=== PATIENT | female | born 1980 | race Caucasian/White ===

== ENCOUNTER 2016-08-16 14:43 | Emergency (ER) | payer OTHER ==
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
[2016-08-16 17:05] VITALS: BP 164/74
== END 2016-08-16 17:09 | disposition home or self-care (01) ==
LOC: UCCORT 14:43
DX: R10.12 Left upper quadrant pain (principal); M54.5 Low back pain; M25.552 Pain in left hip; Z88.0 Allergy status to penicillin; F17.210 Nicotine dependence, cigarettes, uncomplicated
CPT/HCPCS: 81003; 99212; G0463

== ENCOUNTER 2019-03-12 08:38 | Emergency (ER) | payer OTHER ==
--- OUTSIDE RECORDS SUMMARY | 2019-03-12 08:44 | XMS REPORT | Continuity of Care Document ---
:1980 External Reference #:[id number] Author Name Jackelyn Meade MD Address [address] [place] [address] Care Team Providers Name Role Phone Rohan Mariee MD - Gastroenterology Care Team Information Aircraft Maintenance Technician [facility] Care Team Information Aircraft Maintenance Technician [phone] [facility] - Surgery Care Team Information Aircraft Maintenance Technician Thais Sandy MD - Rheumatology Care Team Information Aircraft Maintenance Technician Problems Active Problems Provider Date Family history of endocrine disorders Jackelyn Meade MD Onset: 01/18/2013 Migraine with typical aura Jackelyn Meade MD Onset: 07/14/2012 Family history of diabetes mellitus Jackelyn Meade MD Onset: 01/05/2012 Tobacco user Jackelyn Meade MD Onset: 01/01/2011 Vitamin D deficiency Jackelyn Meade MD Onset: 06/26/2010 Obesity Jackelyn Meade MD Onset: 06/22/2006 Gynecologic examination Jackelyn Meade MD Onset: 10/27/2004 Mixed hyperlipidemia Jackelyn Meade MD Onset: 10/27/2004 Polycystic ovaries Jackelyn Meade MD Onset: 10/27/2004 Fibromyalgia Jackelyn Meade MD Onset: 01/22/2015 Body mass index 30+ - obesity Jackelyn Meade MD Onset: 01/22/2015 Benign neoplasm of colon Jackelyn Meade MD Onset: 01/22/2015 Morbid obesity Jackelyn Meade MD Onset: 02/04/2018 Rosacea Jackelyn Meade MD Onset: 02/04/2018 Hormone replacement therapy Jackelyn Meade MD Onset: 03/02/2019 Social History Type Date Description Comments Sex Unknown ETOH Use Rarely consumes alcohol Tobacco Use Start: Unknown Patient is a current smoker, smokes every day Recreational Drug Use Denies Drug Use Smoking Status Reviewed: 03/02/19 Patient is a current smoker, smokes every day Exercise Type/Frequency Exercises regularly Walks 3 x/week, emilio roa, 01/11/2014 counselled 150min per week 10k steps per day Allergies, Adverse Reactions, Alerts Active Allergies Reaction Severity Comments Date Penicillin 12/05/2014 Inactive Allergies NKDA 12/05/2014 Medications Active Medications SIG Qnty Indications Ordering Date Provider Nicotine Polacrilex chew until 110units F17.210 Halina, 03/02/2019 tingles, when MD Jackelyn 2mg Gum craving met stop; use when has cravings Vitamin D take 2 by mouth 180tabs E55.9 Halina, 02/04/2018 1000Unit daily with dinner MD Jackelyn Tablets with meat fat oil Premarin 1 by mouth every Z79.890 Majo Rashid 01/17/2014 0.3mg day Kim Tablets Immunizations CPT Code Status Date Vaccine Reaction Lot # [id number] Given 12/20/2018 Influenza Vac, Quadrivalent, Split, 0.5mL Dosage, Im Use 21750 Given 02/04/2018 Pneumococcal 23 Immunization [id number] Adult Or Immunosuppressed Patient 65340 Given 01/13/2018 Influenza Vaccine Quadrivalent Preser/Antibiotic Free Im Use [id number] Given 01/18/2017 Flu Vaccine NOS Given At Pharmacy 12758 Given 02/03/2016 Influenza Virus Vaccine,Quadrivalent,Split,Prese rv Free, 0.5mL,[place] [address] Given 01/16/2015 Influenza Virus Vaccine,Quadrivalent,Split,Prese rv Free, 0.5mL,[place] [address] Given 01/18/2013 Afluria Or Fluvirin Flu Vac Intramuscular 34285 Given 10/25/2012 Tdap (Adacel) Ages 7 And Above Only 39246 Given 01/05/2012 Afluria Or Fluvirin Flu Vac Intramuscular 54807 Given 06/06/2009 Hepatitis B Vac Adolescent 2 Dose Schedule 50188 Given 03/05/2009 Afluria Or Fluvirin Flu Vac Intramuscular 27658 Given 01/10/2009 Hepatitis B Vac Adolescent 2 Dose Schedule 40965 Given 12/13/2008 Hepatitis B Vac Adolescent 2 Dose Schedule 86071 Given 08/28/2005 Tetanus And Diptheria Toxoid 7 Years And Older Preserv Free Vital Signs Date Vital Result Comment 03/02/2019 2:48pm Weight 237.00 lb Heart Rate 88 /min BP Systolic 132 mmHg BP Diastolic 86 mmHg Respiratory Rate 18 /min Height 62.5 inches 5'2.50" BMI (Body Mass Index) 42.7 kg/m2 08/24/2018 8:25am Weight 237.00 lb Heart Rate 72 /min BP Systolic 120 mmHg BP Diastolic 80 mmHg Respiratory Rate 18 /min Height 63 inches 5'3" BMI (Body Mass Index) 42.0 kg/m2 Results Test Acquired Date Facility Test Result H/L Range Note Laboratory test 02/23/2019 [facility] Vitamin D 25 29 ng/mL Low 30-100 1 finding Hydroxy Lipid 02/23/2019 [facility] Cholesterol 218 mg/dL High 50-199 Triglycerides 94 mg/dL 30-200 HDL 68 mg/dL 35-85 2 Chol/ HDL Ratio 3.2 ratio Low 3.7-5.6 VLDL 19 mg/dL 2-29 LDL (Calc) 131 mg/dL High 20-99 3 Comprehensive Met Panel[facility] 02/23/2019 [facility] Sodium 141 mmol/L 135- 146 4 Potassium 4.1 mmol/L 3.5-5.2 Chloride# 103 mmol/L 97-110 5 Carbon Dioxide 26 mmol/L 24-34 Calcium 9.5 mg/dL 8.5-10.5 6 Glucose 79 mg/dL 70-105 BUN 16 mg/dL 6-26 Creatinine 0.8 mg/dL 0.5-1.4 Total Protein 7.1 g/dL 6.0-8.0 Albumin 4.5 g/dL 3.6-4.9 Globulin 2.6 g/dL 2.0-3.5 A/G Ratio 1.7 Ratio 1.0-2.2 Total Bilirubin 0.6 mg/dL 0.1-1.3 Alkaline Phosphatase 93 U/L 24-140 Alt 25 U/L 3-42 Ast 18 U/L 8-42 Anion Gap 12 mmol/L 5-15 7 Female Egfr 100 >60 8 Male Egfr 115 >60 9 HIV Combo By [facility] 02/23/2019 [facility] Combo NON REACTIVE Non Reactive 1 Clinical Guidelines for recommended serum 25(OH)Vitamin D Deficient at less than 20 ng/mL Insufficient at 20 to <30 ng/mL Sufficient at 30-100 ng/mL Toxicity at greater than 100 ng/mL 2 Per NCEP ATP III Guidelines: Results lower than 40 mg/dL are suggestive of increased risk for coronary artery disease. Results > or = to 60 mg/dL are considered a negative risk factor. 3 Per NCEP ATP III Guidelines: Normal Population <130 Patients with medical conditions: CHD/DM Optimal: <100 Borderline high: 130-159 High: 160-189 Very high: >189 4 Updated reference range on new analyzer 5 Updated reference range on new analyzer 6 Updated reference range 07-28-2018 7 Updated Reference Range 8 Concerning GFR Guidelines for Americans: Normal function or mild renal disease, if clinically at risk: >/= 60 mL/min Moderately decreased: 30-59 Severely decreased: 15-29 Renal failure: <15 There is reduced accuracy above 60ml/min/1.73 m squared, but the numeric value may be clinically useful in the near 60 range 9 Concerning GFR Guidelines: Normal function or mild renal disease, if clinically at risk: >/= 60 mL/min Moderately decreased: 30-59 Severely decreased: 15-29 Renal failure: <15 There is reduced accuracy above 60ml/min/1.73 m squared, but the numeric value may be clinically useful in the near 60 range Glomerular Filtration Rate (GFR) is estimated based on the CKD-EPI equation, which assumes a steady state for creatinine as recommended by the National Kidney Disease Education Program in conjunction with the National Institutes of Health and the National Kidney Foundation. Clinical conditions in which it may be necessary to measure GFR by using clearance methods include extremes of age and body size, severe malnutrition or obesity, diseases of skeletal muscle, paraplegia or quadriplegia, vegetarian diet, rapidly changing kidney function, and calculation of the dose of potentially toxic drugs that are excreted by the kidneys. Procedures Date Code Description Status 09/01/2017 95371818 Mammogram Completed 07/28/2013 91714114 Colonoscopy Completed Medical Devices Description No Information Available Encounters Description No Information Available Assessments Date Code Description Provider 03/02/2019 Z00.01 Encounter for general adult medical Jackelyn Meade MD examination with abnorma 03/02/2019 E78.2 Mixed hyperlipidemia Jackelyn Meade MD 03/02/2019 F17.210 Nicotine dependence, cigarettes, Jackelyn Meade MD uncomplicated 03/02/2019 E66.01 Morbid (severe) obesity due to excess Jackelyn Meade MD calories 03/02/2019 E55.9 Vitamin D deficiency, unspecified Jackelyn Meade MD 03/02/2019 G43.109 Migraine with aura, not intractable, without Jackelyn Meade MD status migraino 03/02/2019 E28.2 Polycystic ovarian syndrome Jackelyn Meade MD 03/02/2019 Z83.3 Family history of diabetes mellitus Jackelyn Meade MD 03/02/2019 L71.9 Rosacea, unspecified Jackelyn Meade MD 03/02/2019 R03.0 Elevated blood-pressure reading, without Jackelyn Meade MD diagnosis of hypert 03/02/2019 Z12.31 Encounter for screening mammogram for Jackelyn Meade MD malignant neoplasm of breast 03/02/2019 Z79.890 Hormone replacement therapy Jackelyn Meade MD 03/02/2019 Z13.31 Encounter for screening for depression Jackelyn Meade MD 03/02/2019 Z13.89 Encounter for screening for other disorder Jackelyn Meade MD 03/02/2019 Z68.41 Body mass index (BMI) 40.0-44.9, adult Jackelyn Meade MD 02/23/2019 E55.9 Vitamin D deficiency, unspecified Jackelyn Meade MD 02/23/2019 E55.9 Vitamin D deficiency, unspecified Schedule, Laboratory 02/23/2019 E78.2 Mixed hyperlipidemia Jackelyn Meade MD 02/23/2019 E78.2 Mixed hyperlipidemia Schedule, Laboratory 02/23/2019 Z11.4 Encounter for screening for human Jackelyn Meade MD immunodeficiency virus [HIV] 02/23/2019 Z11.4 Encounter for screening for human Schedule, Laboratory immunodeficiency virus 02/23/2019 E55.9 Vitamin D deficiency, unspecified [facility] 02/23/2019 E78.2 Mixed hyperlipidemia [facility] 02/23/2019 Z11.4 Encounter for screening for human [facility] immunodeficiency virus Plan of Treatment Future Appointment(s):02/28/2020 8:30 am - Schedule, Laboratory at [facility]2019 11:00 am - Jackelyn Meade MD at [facility]03/02/2019 - Jackelyn Meade MDZ00.01 Encounter for general adult medical examination with abnormaComments: Well adult female Cake Wringer care with Dr Rashid's office Imms reviewed, tdap done 2012 pneumovax, doneconsider hep a for travel abroad .recommend flu vax annually doneRecommend periodic ophtho and dental care. Recommend health care proxy and will be done. Healthy lifestyle recommendations. Encouraged healthy diet with meats simply prepared, fresh fruits and veg when able also simply prepared, whole grains, 3 dairies per day non fat. Encouraged daily exercise 30 - 60 min daily/150min per week. Encouraged at least 2 qrts water per day with more for sweaty exercise. [employer] 7-8 hours of sleep at night. Work on your "happy factors", meaning hobbies and things you do day to day. Limit your alcohol to under 1 per day. Avoid tobacco Engaging in a health lifestyle may decrease your risk for illnesses and may improve your quality of lifeFollow up: next visit in 366+ days for 30min annual exam and nonfasting labs 5 days vyamhQ69.2 Mixed hyperlipidemiaNew Labs:Lipid, Scheduled: 02/28/20Comprehensive Met Panel[facility], Scheduled: 02/28/20Comments:high cholreviewed AHA/ACC 2018 risk assessment and guidelines, suggests an <5% cardiovascular risk, meaning < 5 out of 100 people with your risk factors will have a heart attack or stroke in the next 10 years. This is considered low risk. Modifiers: No hypertension, no diabetes, is a smoker. Does have family history Recommend: Low fat ( under 30gm), low chol diet ( under 300mg per day chol)focus on lean meat, nonfat 1% dairy, increased veg and fruit, whole grains consume healthy omega-3 fats with each meal, avoiding transfats. weight lossexercise build to 150min per week or 10,000 steps per day Since this is considered low risk, no aspirin is recommended at this time. Reviewed signs and symptoms of cardiovascular disease.recheck periodically to monitor dietary hkykjoxbxP95.210 Nicotine dependence, cigarettes, uncomplicatedNew Medication:Nicotine Polacrilex 2 mg - chew until tingles, when craving met stop; use when has cravingsComments: Tobacco use. Counselled smoking risks for cancer, lung, cardiovascular disease. Pt isn't ready to quit, smokes about 5 per day. suggest to pick a quit date , she chooses 1/1 she will retry the gum, discussed how to use Advised pt of availability of medications to help with smoking cessation such asnicotine replacement and anxiety meds, as well as meds to help fight cravings call if ready. Needs to be able to pick a quit date. We offer lung cancer screening at age 55 if qualifies cautioned risks for cardiovascular disease and stroke with smoking and use of xthvzqlsY34.01 Morbid (severe) obesity due to excess caloriesComments:Morbid obesitythis increases your risk for sleep apnea, arthritis, premature cardiovascular disease,etcpt is aware of medication ( discussed bupropion, she did not get coverage of contrave) and surgical optionsdiscussed intermittent fasting prefers to continue diet and exercise continue to work on diet, exercise, weight lossE55.9 Vitamin D deficiency, unspecifiedNew Labs:Vitamin D 25 Hydroxy, Scheduled: 02/28/20Comments:Pt with vit D deficiency on replacement a little low. Recommendations are for levels 40 - 85. Continue replacement and recheck periodically. increase to 2000 iu daily Be certain to take your vit d with your main meal that has meat/fat/oil as this is fat soluble.G43.109 Migraine with aura, not intractable, without status migrainoComments:Migraines controlled to pt's satisfaction. Advised to continue meds and call prn worse migraine frequency. Advised pt of new recommendations to try magnesium (try magnesium gluconate 400-500mg daily) and Vit B2 200mg daily, they may stop /prevent uittnbekyQ24.2 Polycystic ovarian syndromeComments:ho pcos, sp oophorectomy. continue to work on diet, exercise, weight loss premarin per Dr Rashid cautioned risks for estrogen use with smoking to increase the risks for heart attack and stroke.Z83.3 Family history of diabetes mellitusComments:fam history diabetes--Please monitor for symptoms of diabetes, such as polydipsia(thirst/drinking alot), polyuria(urinating alot, kelsy at night), fatigue, or concerns. Encourage healthy diet, daily exercise, weight loss to get to rwjvgaL86.9 Rosacea, unspecifiedComments:Rosacea appears stable,no medsR03.0 Elevated blood-pressure reading, without diagnosis of hypertComments:Prehypertensive. Bp at or over 120/80 either number indicates prehypertension. Advised pt cut offs to initiate medication treatment are > 140/90, either number. Pt should continue to monitor and call if bps are regularly higher. In the meantime, work on healthy eating and avoiding excessive salt,DASH diet, regular exercise.Z12.31 Encounter for screening mammogram for malignant neoplasm of breastComments:care with Dr Mcarthurogram and clinical breast exam with monthly breast self exams discussed. Pt should call/come in if she has any concerns in breast self exam.Discussed currently some guidelines suggest starting mammogram screening at age 45, others at age 50. At risk pts should do annually or as directed by specialist recommendations. Currently I am recommending pts do what they feel they should, and that most in this risk category do an annual mammogram and clinical breast exam. Discussed the new recommendations for breast ultrasound for very dense breasts as an additional test for screening. She did baseline mammo previously She asks for periodic mammogram and clinical breast exam Care with Dr RashidZ79.890 Hormone replacement therapyComments:patient is a smoker with migrainsshe takes oral estrogencautioned increased risks for stroke, clottingrecommend she taper this offcare with Dr Rashid, she will call the office, I will send my noteZ13.31 Encounter for screening for depressionComments :screen negative for cltbabcufuZ33.89 Encounter for screening for other disorderComments:screen negative for alcohol hhxydyK63.41 Body mass index (BMI) 40.0-44.9, adultComments:continue to work on diet, exercise, weight loss Functional Status Description No Information Available Mental Status Description No Information Available Referrals Description No Information Available
[2019-03-12 08:53] VITALS: BP 120/68
--- NOTE | 2019-03-12 09:00 | UC ---
Hand/Wrist HPI - HPI Summary HPI Summary: 38 y/o female presents to the urgent care c/o left wrist pain s/p lifting her cocker spaniel dog onto the couch last night and injured her L wrist. She is unsure exactly how, but this morning pain is 8/10 and unable to flex her wrist and left thumb. Pt w/ Hx of shoulder and knee joint surgeries in the past. She has been seen by a Mortuary Beautician who has done several testing to r/o any problem w. her joints since she injures them very easily. Pain is 8/10 sharp radiating to her left thumb. She can't explained how it happened, but she knows all the dog's weight was in her left wrist b/c she has Hx of RT elbow ligament injury and she couldn't put too much weight on her Rt extremity. Pt is Rt handed. Pt denies fever, numbness or tingling sensation over the left extremity , SOB, chest pain, abdominal pain, N/V/d. - History Of Current Complaint Chief Complaint: UCUpperExtremity Stated Complaint: LT WRIST INJURY Time Seen by Provider: 03/12/19 08:56 Hx Obtained From: Patient Hx Last Menstrual Period: n/a - hysterectomy ?: No Onset/Duration: Sudden Onset, Lasting Days - 1 day, Still Present, Worse Since - this morning unable to flex her left wrist Severity Initially: Moderate Severity Currently: Moderate Pain Intensity: 8 Pain Scale Used: 0-10 Numeric Character Of Pain: Sharp Aggravating Factor(s): Movement, Lifting, Flexion Alleviating Factor(s): Rest, Ice, OTC Meds Associated Signs And Symptoms: Positive: Swelling - mild on the radial side. Negative: Numbness/Tingling Related History: Dominant Hand Right - Allergies/Home Medications Allergies/Adverse Reactions: Allergies Allergy/AdvReac Type Severity Reaction Status Date / Time Penicillins Allergy Rash Verified 03/12/19 08:47 Home Medications: Home Medications Ibuprofen TAB* [Advil TAB*] 800 mg PO ONCE 03/12/19 [History Confirmed 03/12/19] PMH/Surg Hx/FS Hx/Imm Hx Previously Healthy: Yes - Pt denies PMHX - Surgical History Surgical History: Yes Surgery Procedure, Year, and Place: knee and shoulder surgeries. appendectomy. hysterectomy - Family History Known Family History: Positive: Cardiac Disease, Hypertension, Diabetes - Social History Occupation: Employed Full-time Lives: With Family Alcohol Use: Rare Substance Use Type: None Smoking Status (MU): Light Every Day Tobacco Smoker Type: Cigarettes Amount Used/How Often: 6 cigs per day Length of Time of Smoking/Using Tobacco: 20 YRS Have You Smoked in the Last Year: Yes Review of Systems All Other Systems Reviewed And Are Negative: Yes Constitutional: Positive: Negative Skin: Positive: Negative Eyes: Positive: Negative ENT: Positive: Negative Respiratory: Positive: Negative Cardiovascular: Positive: Negative Gastrointestinal: Positive: Negative Genitourinary: Positive: Negative Motor: Positive: Negative Neurovascular: Positive: Negative Musculoskeletal: Positive: Decreased ROM - left wrist, Other: - left wrist pain s/p injury lifting her dog Neurological: Positive: Negative Psychological: Positive: Negative Is Patient Immunocompromised?: No Physical Exam - Summary Physical Exam Summary: Vital Signs Reviewed: Yes General: Well-Appearing, No Pain Distress, Well-Nourished - female w/o any apparent distress Eyes: Positive: Conjunctiva Clear - PERRLA, EOMI ENT: Positive: Normal ENT inspection, Hearing grossly normal, Pharynx normal, TMs normal, Uvula midline Neck: Positive: Supple, Nontender, No Lymphadenopathy Respiratory: Positive: Chest non-tender, Lungs clear, Normal breath sounds, No respiratory distress Cardiovascular: Positive: RRR, No Murmur, Pulses Normal, Brisk Capillary Refill Abdomen Description: Positive: Nontender, No Organomegaly, Soft. Negative: CVA Tenderness (R), CVA Tenderness (L) Bowel Sounds: Positive: Present Musculoskeletal: Positive: Strength Intact, Other: Neurological Exam: Normal Musculoskeletal: Positive: Left Wrist: the L wrist is without obvious asymmetry or deformity when compared to the R wrist. No surface trauma, open wounds, mild swelling over the radial side of wrist w/ point tenderness, no obvious deformity. No overlying erythema or warmth. No bony crepitus. Point tenderness over the thenar eminence and ventral side and radial side of wrist. No scaphoid fullness or tenderness to direct palpation or axial load. Decreased ROM due to pain. Motor/sensory function of ulnar, radial, median nerves intact. Ulnar and radial pulses intact. Unable to performe Phalens/ Tinels sign and Mary Alice test due to pain. Psychological Exam: Normal Skin Exam: Normal Triage Information Reviewed: Yes Vital Signs: Initial Vital Signs Temp 97.7 F 03/12/19 08:48 Pulse 72 03/12/19 08:48 Resp 16 03/12/19 08:48 BP 120/68 03/12/19 08:48 Pulse Ox 100 03/12/19 08:48 Hand/Wrist Course/Dx - Course Course Of Treatment: 38 y/o female presents to the urgent care c/o left wrist pain s/p lifting her cocker spaniel dog onto the couch last night and injured her L wrist. She is unsure exactly how, but this morning pain is 8/10 and unable to flex her wrist and left thumb. Pt w/ Hx of shoulder and knee joint surgeries in the past. She has been seen by a [employer]ician who has done several testing to r/o any problem w. her joints since she injures them very easily. Pain is 8/10 sharp radiating to her left thumb. She can't explained how it happened, but she knows all the dog's weight was in her left wrist b/c she has Hx of RT elbow ligament injury and she couldn't put too much weight on her Rt extremity. Pt is Rt handed. Pt denies fever, numbness or tingling sensation over the left extremity , SOB, chest pain, abdominal pain, N/V/d. Hx obtained. LF wrist X-ray ordered. IMPRESSION: Top normal width of the scapholunate joint space could indicate ligamentous injury. There is no radiographically apparent acute fracture. If the patient's symptoms persist, follow-up imaging is recommended. Probably a left wrist sprain. Pts wrist immobilized with thumb spica splint. Advised RICE : Rest, Ice, elevation, Ibuprofen PO. There was no neurovascular compromise after splint application placed by nurse; the splint was in good alignment and the pt had good sensation and capillary refill at the time of discharge.Pt advised to f/u w/ Orthopedic Dr Garrett if not improvement of symptoms in 3 days. Pt understood and agreed w/ plan of care. - Differential Dx/Diagnosis Differential Diagnosis/HQI/PQRI: Carpal Tunnel Syndrome, Contusion, Dislocation , Fracture, Sprain, Strain, Tendonitis Provider Diagnosis: Left wrist sprain Discharge ED - Sign-Out/Discharge Documenting (check all that apply): Patient Departure - D/C home All imaging exams completed and their final reports reviewed: Yes - Discharge Plan Condition: Stable Disposition: HOME Patient Education Materials: Wrist Sprain (ED) Referrals: Jackelyn Meade MD [Primary Care Provider] - 3 Days Patria Garrett MD [Medical Doctor] - 3 Days Additional Instructions: 1-Please continue taking Ibuprofen PO q6-8hrs prns after meals as directed to alleviate pain and swelling. 2-Please apply ice, keep your thumb immobilized with the splint. Avoid heavy lifting. 3- Please f/u with Orthopedic DR Garrett or your Orthopedic in 3 days for further evaluation and treatment on possible ligament injury. - Billing Disposition and Condition Condition: STABLE Disposition: Home - Attestation Statements Provider Attestation: I was available for consult. This patient was seen by the LEMUEL. The patient was not presented to, seen by, or examined by me. -Noelle
== END 2019-03-12 09:55 | disposition home or self-care (01) ==
LOC: UCCORT 08:38
DX: S63.502A Unspecified sprain of left wrist, initial encounter (principal); X50.9XXA Other and unspecified overexertion or strenuous movements or postures, initial encounter; Y93.89 Activity, other specified; Y92.9 Unspecified place or not applicable; Z88.0 Allergy status to penicillin; F17.210 Nicotine dependence, cigarettes, uncomplicated
CPT/HCPCS: 99212; G0463